=== PATIENT | female | born 1975 | race Caucasian/White ===

== ENCOUNTER 2017-11-07 14:54 | Emergency (ER) | payer OTHER ==
[~2017-11-07] VITALS: Ht 157.5 cm; Wt 49.9 kg
[~2017-11-07 14:54] MED LIST: CLON.5; FLUO10; LORA1 PO
[2017-11-07] MEDS ORDERED: Ultram50 MG PO (16:50)
== END 2017-11-07 17:10 | disposition home or self-care (01) ==
LOC: ER 14:54
DX: S01.81XA Laceration without foreign body of other part of head, initial encounter (principal); S01.111A Laceration without foreign body of right eyelid and periocular area, initial encounter; V86.56XA Driver of dirt bike or motor/cross bike injured in nontraffic accident, initial encounter; F41.9 Anxiety disorder, unspecified; F17.210 Nicotine dependence, cigarettes, uncomplicated
CPT/HCPCS: 12002; 70450; 90714; 99284

== ENCOUNTER 2018-12-02 14:49 | Emergency (ER) | payer OTHER ==
[~2018-12-02] VITALS: Ht 162.6 cm; Wt 59.0 kg
[~2018-12-02 14:49] MED LIST changes: +Ultram50 MG PO
[2018-12-02 18:57] LABS: Source, Urine Clean Catch
[2018-12-02 18:59] LABS: Bilirubin, Urine Neg (Neg); Blood, Urine 2+ (Neg); Glucose Qualitative, Urine Neg (Neg); Ketones, Urine 1+ (Neg); Leukocyte Esterase, Urine 1+ (Neg); Nitrite, Urine Neg (Neg); Protein, Urine 1+ (Neg); Specific Gravity, Urine 1.025 (1.003-1.022); Urobilinogen, Urine NORM (Normal)
[2018-12-02 19:04] LABS: Appearance, Urine Clear (Clear); Color, Urine Yellow (P-Yellow)
[2018-12-02 19:08] LABS: Bacteria Few /hpf; Squamous Epithelial Cells Few /hpf (Few)
[2018-12-06 01:07] LABS: CHLAMYDIA BY NAA Negative (Negative); GONOCOCCUS BY NAA Negative (Negative); TRICH VAG BY NAA Negative (Negative)
== END 2018-12-02 20:13 | disposition home or self-care (01) ==
LOC: ER 14:49
PROVIDERS: Emergency Medicine
DX: T74.21XA Adult sexual abuse, confirmed, initial encounter (principal); S70.12XA Contusion of left thigh, initial encounter
CPT/HCPCS: 81001; 81025; 87086; 87491; 87591; 87661; J0696

== ENCOUNTER → 2020-08-02 | Outpatient (CLI) | payer OTHER ==
[2020-08-06 16:11] LABS: HPV 16 Negative (Negative); HPV 18 Negative (Negative); HPV OTHER HR TYPES Negative (Negative)
== END | disposition home or self-care (01) ==
LOC: LAB SHORT 10:30 → LAB 10:30
PROVIDERS: Nurse Practitioner Family
DX: Z12.4 Encounter for screening for malignant neoplasm of cervix (principal)
CPT/HCPCS: 87624; G0123